=== PATIENT | male | born 1970 | race African-American/Black ===

== ENCOUNTER 2017-12-20 16:36 | Emergency (ER) | payer MEDICARE, MEDICAID ==
[2017-12-20] MEDS: KETOROLAC 60 MG INJ IM (19:50)
[2017-12-20] MEDS ORDERED: CEFTRIAXONE 1 GM INJ IM (22:30)
== END 2017-12-20 22:59 | disposition left against medical advice (07) ==
LOC: FTE 22:59
DX: J18.9 Pneumonia, unspecified organism (principal); M25.511 Pain in right shoulder
CPT/HCPCS: 71046; 93005; 96372; 99284-25